=== PATIENT | female | born 1980 | race Caucasian/White ===

== ENCOUNTER 2023-08-13 09:10 | Day surgery (SDC) | payer MEDICARE, MEDICAID ==
[~2023-08-13] VITALS: Ht 160 cm; Wt 65.8 kg
[2023-08-13 10:06] LABS: BASOPHILS % (AUTO) 0.5 % (0-1); EOSINOPHILS # (AUTO) 0.2 X10'3 (0-0.9); EOSINOPHILS % (AUTO) 1.9 % (0-6); HEMATOCRIT 36.2 % (35.0-45.0); HEMOGLOBIN 12.3 g/dl (12.0-16.0); LYMPHOCYTES # (AUTO) 2.1 X10'3 (1.1-4.8); LYMPHOCYTES % (AUTO) 23.9 % (21-51); MEAN CORPUSCULAR HEMOGLOBIN 31.5 PG (27.0-31.0); MEAN CORPUSCULAR VOLUME 92.4 FL (78-98); MEAN PLATELET VOLUME 7.5 FL (7.4-10.4); MONOCYTES # (AUTO) 0.6 X10'3 (0-0.9); MONOCYTES % (AUTO) 6.2 % (2-12); NEUTROPHILS % (AUTO) 67.5 % (42-75); PLATELET COUNT 265 X10'3 (140-440); RED BLOOD COUNT 3.92 X10'6 (4.20-5.60); RED CELL DISTRIBUTION WIDTH 17.2 % (11.5-14.5); WHITE BLOOD COUNT 8.9 X10'3 (4.5-11.0)
[2023-08-13] MEDS ORDERED: HYDR200T73 PO (10:15)
[2023-08-13] MEDS ORDERED: HYDR453.3 TOP (10:15)
[2023-08-13] MEDS ORDERED: BUSP5TAB3 PO (10:15)
[2023-08-13] MEDS ORDERED: PREG75CA76 PO (10:15)
[2023-08-13] MEDS ORDERED: BACL10TA2 PO (10:15)
[2023-08-13 10:17] VITALS: BP 105/69; PULSE 94; RESP 16; TEMP 99.2; O2SAT 94
[2023-08-13] MEDS ORDERED: OXYC-870 (10:24)
[2023-08-13] MEDS ORDERED: IBUP-2697 PO (10:24)
[2023-08-13] MEDS ORDERED: ACET-3209 PO (10:24)
[2023-08-13 10:41] VITALS: RESP 16; O2SAT 95
[2023-08-13] MEDS: clindamycin 600mg/D5W 50ml 50 ML IV ONE (11:09)
[2023-08-13] MEDS ORDERED: iohexol 300 MG/1 ML 50ml polymer ONE (11:32)
[2023-08-13] MEDS ORDERED: midazolam 1 mg/ML 2ml injection ONE (12:04)
[2023-08-13] MEDS ORDERED: fentaNYL/PF 50MCG/1 ML 2ML syringe ONE (12:04)
[2023-08-13 12:29] VITALS: BP 109/73; PULSE 90; RESP 16; O2SAT 97
[2023-08-13 12:45] VITALS: BP 109/56; PULSE 88; RESP 16; O2SAT 99
[2023-08-13 13:00] VITALS: BP 102/56; PULSE 90; RESP 16; O2SAT 99
[2023-08-13 13:15] VITALS: BP 107/62; PULSE 89; RESP 16; O2SAT 99
== END 2023-08-13 13:35 | disposition home or self-care (01) ==
LOC: SSTAY O 09:10
PROVIDERS: ATTEND Radiology Diagnostic Radiology
DX: T83.032A Leakage of nephrostomy catheter, initial encounter (principal); N13.6 Pyonephrosis; J45.20 Mild intermittent asthma, uncomplicated; F41.9 Anxiety disorder, unspecified; Z87.442 Personal history of urinary calculi; Z79.1 Long term (current) use of non-steroidal anti-inflammatories (NSAID); Z79.2 Long term (current) use of antibiotics; Z79.891 Long term (current) use of opiate analgesic; Z79.899 Other long term (current) drug therapy; Z98.890 Other specified postprocedural states; Z88.0 Allergy status to penicillin; Z91.013 Allergy to seafood; Y73.2 Prosthetic and other implants, materials and accessory gastroenterology and urology devices associated with adverse incidents; Y92.89 Other specified places as the place of occurrence of the external cause
CPT/HCPCS: 36415; 50434; 85025; A6258; C1729; C1769; J2250; J3010; J3490; J7030; Q9967; 50693; A4421